=== PATIENT | female | born 1965 | race Caucasian/White ===

== ENCOUNTER → 2016-10-27 | Outpatient (CLI) | payer OTHER ==
[~2016-10-27] MED LIST: BLAC40CA2 PO; CALCTAB5 PO; CHOL20009 PO; CYCL0.05 OP; MAGN250T3 PO
== END | disposition home or self-care (01) ==
LOC: C.LAB1850 16:18
PROVIDERS: ATTEND Family Medicine
DX: H16.299 Other keratoconjunctivitis, unspecified eye (principal)